=== PATIENT | female | born 1960 | race Caucasian/White ===

== ENCOUNTER 2020-05-21 02:18 | Inpatient (IN) | payer MEDICARE, OTHER ==
[~2020-05-21] VITALS: Ht 162.6 cm; Wt 86.2 kg
[~2020-05-21 02:18] MED LIST: COREG 25MG TAB25 MG PO; DEXAMETHASONE 44 MG PO; EFFIENT10 MG PO; FUROSEMIDE20 MG PO; HYDRALAZINE HCL50 MG PO; LACTINEX TABLET1 EA PO; LEVAQUIN500 MG PO; LIPITOR TAB 2020 MG PO; NORVASC 5 MG TAB5 MG PO; PHOSLO 667 MG667 MG PO; PROAIR HFA8.5 GM INH; SODIUM BICARBO650 MG PO; SYNTHROID150 MCG PO
[2020-05-21] MEDS ORDERED: MIRTAZAPINE30 MG PO (07:03)
[2020-05-21 08:37] LABS: HEMOGLOBIN 12.3 gm/dl (12.3-15.3); RED BLOOD COUNT 3.65 M/UL (4.00-5.10)
[2020-05-22 04:20] LABS: HEMOGLOBIN 11.1 gm/dl (12.3-15.3); RED BLOOD COUNT 3.35 M/UL (4.00-5.10)
[2020-05-22 04:22] LABS: WHITE BLOOD COUNT 9.4 K/UL (4.5-11.0)
[2020-05-22 04:43] LABS: BODY FLUID SOURCE PERITONEAL
[2020-05-22 04:44] LABS: MONONUCLEAR CELLS 66.7 (75-100); POLYMORPHONUCLEAR % 33.3 (0-25); RBC (MANUAL) 19; WBC (AUTOMATED) 12 (0-500)
--- NOTE | 2020-05-22 13:43 | NUR ---
DIALYSIS UNHOOKED AND DISCONTINUED PERITONEAL DIALYSIS THIS AM. REPORTED UF OF 51. WILL BE BACK THIS EVENING TO HOOK PATIENT UP AGAIN.
[2020-05-23 03:13] LABS: HEMOGLOBIN 11.1 gm/dl (12.3-15.3); RED BLOOD COUNT 3.34 M/UL (4.00-5.10)
[2020-05-24 05:44] LABS: ADENOVIRUS F 40/41 Not Detected (Negative); ASTROVIRUS Not Detected (Negative); CAMPYLOBACTER Not Detected (Negative); CLOSTRIDIUM DIFFICILE TOX A/B Not Detected (Negative); CRYPTOSPORIDIUM Not Detected (Negative); E.COLI 0157 Not Detected (Negative); ENTAMOEBA HISTOLYTICA Not Detected (Negative); ENTEROAGGREGATIVE E.COLI (EAEC Not Detected (Negative); ENTEROPATHOGENIC E.COLI (EPEC) Not Detected (Negative); ENTEROTOXIGENIC E.COLI (ETEC) Not Detected (Negative); GIARDIA LAMBLIA Not Detected (Negative); NOROVIRUS GI/GII Not Detected (Negative); PLESIOMONAS SHIGELLOIDES Not Detected (Negative); ROTOVIRUS A Not Detected (Negative); SALMONELLA Not Detected (Negative); SAPOVIRUS Not Detected (Negative); SHIG/ENTEROINVAS.ECOLI (EIEC) Not Detected (Negative); SHIGA-LIK TOX.PRO.E.COLI (STEC Not Detected (Negative); VIBRIO Not Detected (Negative); VIBRIO CHOLERAE Not Detected (Negative); YERSINIA ENTEROCOLITICA Not Detected (Negative)
[2020-05-24 06:01] LABS: HEMOGLOBIN 10.8 gm/dl (12.3-15.3); RED BLOOD COUNT 3.25 M/UL (4.00-5.10); WHITE BLOOD COUNT 7.7 K/UL (4.5-11.0)
[2020-05-24] MEDS ORDERED: FLAGYL500 MG PO (13:06)
[2020-05-24] MEDS ORDERED: LEVOFLOXACIN500 MG PO (13:08)
--- NOTE | 2020-05-24 14:09 | NUR ---
INSTRUCTED ON NEW MEDS AT PHARMACY. SIGNS AND SYMPTOMS DISCUSSED WITH PATIENT. CONTINUE HOME MEDS AND COMPLETE ANTIBIOTICS. VERBALIZED UNDERSTANDING. HINA HAMMER R.N.
== END 2020-05-24 16:52 | disposition home or self-care (01) | DRG 871 ==
LOC: MED SURG 4 05:53 → PROG CARE 05:53 → MED SURG 4 06:28
PROVIDERS: Internal Medicine; Physician Assistant; ADMIT Internal Medicine Infectious Disease
PROC: 3E1M39Z Irrigation of Peritoneal Cavity using Dialysate, Percutaneous Approach (ICD-10-PCS; principal; 2020-05-23)
DX: A41.9 Sepsis, unspecified organism (principal); K65.9 Peritonitis, unspecified; N18.6 End stage renal disease; I13.2 Hypertensive heart and chronic kidney disease with heart failure and with stage 5 chronic kidney disease, or end stage renal disease; K56.7 Ileus, unspecified; Z20.822 Contact with and (suspected) exposure to COVID-19; E66.9 Obesity, unspecified; K52.9 Noninfective gastroenteritis and colitis, unspecified; D63.1 Anemia in chronic kidney disease; E87.6 Hypokalemia; I50.9 Heart failure, unspecified; J44.9 Chronic obstructive pulmonary disease, unspecified; I25.10 Atherosclerotic heart disease of native coronary artery without angina pectoris; Z99.2 Dependence on renal dialysis; Z95.5 Presence of coronary angioplasty implant and graft; Z87.440 Personal history of urinary (tract) infections; Z88.8 Allergy status to other drugs, medicaments and biological substances; Z83.3 Family history of diabetes mellitus; Z80.9 Family history of malignant neoplasm, unspecified; Z82.49 Family history of ischemic heart disease and other diseases of the circulatory system; Z88.6 Allergy status to analgesic agent; Z68.32 Body mass index [BMI] 32.0-32.9, adult; Z99.81 Dependence on supplemental oxygen
CPT/HCPCS: 36415; 80048; 80053; 80202; 81001; 82150; 82945; 83615; 83986; 84132; 84157; 85025; 86140; 87040; 87070; 87086; 87205; 87507; 89051; 90947; 94760; C9113; J0713; J1644; J2185; J2405; J3370; J7070; U0003

== ENCOUNTER 2020-06-09 05:21 | Inpatient (IN) | payer MEDICARE, OTHER ==
[~2020-06-09] VITALS: Ht 162.6 cm; Wt 85.7 kg
[~2020-06-09 05:21] MED LIST changes: +FLAGYL500 MG PO; +LEVOFLOXACIN500 MG PO; +MIRTAZAPINE30 MG PO
[2020-06-09 10:28] LABS: HEMOGLOBIN 11.6 gm/dl (12.3-15.3); RED BLOOD COUNT 3.43 M/UL (4.00-5.10); WHITE BLOOD COUNT 7.9 K/UL (4.5-11.0)
[2020-06-09] MEDS ORDERED: PROTONIX40 MG PO (11:08)
[2020-06-10 04:15] LABS: HEMOGLOBIN 10.4 gm/dl (12.3-15.3); WHITE BLOOD COUNT 7.7 K/UL (4.5-11.0)
[2020-06-10 04:21] LABS: RED BLOOD COUNT 3.07 M/UL (4.00-5.10)
--- NOTE | 2020-06-12 05:02 | NUR ---
AT 420AM, PATIENT C/O EPI ABD PAIN THAT RADIATED TO MID CHEST AND SLIGHTLY TO LEFT CHEST. PATIENT IS SCHEDULED FOR STRESS TEST IN AM. PATIENT GIVEN BENTYL AND TYLENOL APPROXIMATELY 2 HOURS EARLIER WHEN PAIN WAS IN ABD ONLY. NITROSTAT GIVEN AND PATIENT EXPERIENCED RELIEF. DR CRUZ NOTIFIED. ORDER FOR STAT EKG AND CE NOTED. WILL MONITOR.
[2020-06-12] MEDS ORDERED: ISOSORBIDE MONO30 MG PO (15:00)
[2020-06-12] MEDS ORDERED: CARVEDILOL12.5 MG PO (15:00)
[2020-06-12] MEDS ORDERED: BENTYL 10MG CAP10 MG PO (15:00)
== END 2020-06-12 16:49 | disposition home or self-care (01) | DRG 313 ==
LOC: M/S 05:21
PROVIDERS: Physician Assistant Medical; ADMIT Internal Medicine
PROC: B24BZZ4 Ultrasonography of Heart with Aorta, Transesophageal (ICD-10-PCS; principal; 2020-06-09)
PROC: 3E1M39Z Irrigation of Peritoneal Cavity using Dialysate, Percutaneous Approach (ICD-10-PCS; 2020-06-10)
DX: R07.89 Other chest pain (principal); N18.6 End stage renal disease; I13.2 Hypertensive heart and chronic kidney disease with heart failure and with stage 5 chronic kidney disease, or end stage renal disease; R19.7 Diarrhea, unspecified; I25.10 Atherosclerotic heart disease of native coronary artery without angina pectoris; F17.210 Nicotine dependence, cigarettes, uncomplicated; Z20.822 Contact with and (suspected) exposure to COVID-19; E87.6 Hypokalemia; I08.0 Rheumatic disorders of both mitral and aortic valves; I50.9 Heart failure, unspecified; J44.9 Chronic obstructive pulmonary disease, unspecified; Z99.2 Dependence on renal dialysis; Z88.6 Allergy status to analgesic agent; Z95.5 Presence of coronary angioplasty implant and graft; Z98.51 Tubal ligation status; I25.2 Old myocardial infarction
CPT/HCPCS: ECHO; 36415; 78452; 80048; 80053; 80061; 81001; 82550; 82553; 83735; 84484; 85025; 85027; 87086; 90937; 90945; 90947; 93005; 93017; 93306; A9502; G0378; G0379; J2785